=== PATIENT | male | born 1955 | race Caucasian/White ===

== ENCOUNTER 2017-11-27 09:34 | Outpatient (CLI) | payer BC ==
[2017-11-27 10:17] LABS: Anion Gap 12 mmol/L (10-20); BUN (Urea Nitrogen) 25 mg/dL (8.4-25.7); Bilirubin Negative (Negative); Blood, Urine Negative (Negative); Calc. Creatinine Clearance 0 mL/min (70-130); Calcium 9.7 mg/dL (7.8-10.44); Carbon Dioxide 26 mmol/L (23-31); Chloride 104 mmol/L (98-107); Clarity CLEAR (Clear); Estimated GFR-MDRD 90; Glucose 115 mg/dL (80-115); Glucose, Urine (Dipstick) Negative (Negative); Leukocyte Negative (Negative); Nitrite Negative (Negative); Potassium 4.1 mmol/L (3.5-5.1); Protein, Urine (Dipstick) Negative (Neg-Trace); Sodium 138 mmol/L (136-145); Specific Gravity, Urine 1.034 (1.002-1.036); Urobilinogen 0.2 mg/dL (0.2-1.0); pH, Urine 5.5 (5.0-9.0)
[2017-11-27 10:22] LABS: Bacteria/HPF None Seen HPF (None Seen); Hyaline Casts/LPF 0-3 HYALINE CAST LPF (0-3 Hyaline); Pathc Cast-AUWi Flag 0.72 (0-2.49); RBC/HPF 0-3 HPF (0-3); Squamous Epithelial None Seen HPF (0-3); WBC/HPF 0-3 HPF (0-3)
--- NOTE | 2017-11-27 12:13 | RAD ---
SINGLE VIEW ABDOMEN: Date: 11/27/17 COMPARISON: 05/02/16. HISTORY: Calculus of kidney. FINDINGS: Anterior views of the abdomen show a nonspecific, nonobstructed bowel gas pattern. There are calcific ations seen projecting over the left renal shadow measuring up to 4.0 mm in size. No calcifications a re seen projecting over the right renal shadow. No calcifications are seen along the course of the ur eters. IMPRESSION: Left nephrolithiasis. POS: NAOMIE
== END 2017-11-27 09:35 | disposition home or self-care (01) ==
LOC: RAD 09:34
PROVIDERS: ATTEND Urology
DX: Z12.5 Encounter for screening for malignant neoplasm of prostate (principal); N20.0 Calculus of kidney; N40.1 Benign prostatic hyperplasia with lower urinary tract symptoms
CPT/HCPCS: 36415; 74018; 80048; 81001; 87086; G0103

== ENCOUNTER 2019-01-06 08:34 | Observation (INO) | payer BC ==
[2019-01-06 09:21] LABS: #Lymphocytes 0.7 thou/uL (1.20-3.40); #Monocytes 0.7 thou/uL (0.11-0.59); #Neutrophils 8.8 thou/uL (1.40-6.50); %Basophils 0.1 % (0.0-1.0); %Eosinophils 0.5 % (0.0-10.0); %Lymphocytes 7.2 % (21.0-51.0); %Monocytes 7.1 % (0.0-10.0); %Neutrophils 85.2 % (42.0-75.0); Hemoglobin 15.8 g/dL (14.0-18.0); Mean Corpuscular HGB CONC 33.2 g/dL (32.0-36.0); Mean Corpuscular Hemoglobin 29.8 pg (27.0-31.0); Mean Corpuscular Volume 89.9 fL (78.0-98.0); Mean Platelet Volume 9.7 fL (7.4-10.4); Platelet Count 178 thou/uL (130-400); RBC Distribution Width 11.8 % (11.5-14.5); Red Blood Cell (RBC) Count 5.28 mill/uL (4.70-6.10); White Blood Cell (WBC) Count 10.3 thou/uL (4.8-10.8)
[2019-01-06 09:43] LABS: ALT (SGPT) 32 U/L (8-55); AST (SGOT) 20 U/L (5-34); Albumin 4.4 g/dL (3.4-4.8); Alkaline Phosphatase 92 U/L (40-150); Anion Gap 16 mmol/L (10-20); BUN (Urea Nitrogen) 16 mg/dL (8.4-25.7); Bilirubin, Total 0.7 mg/dL (0.2-1.2); Calc. Creatinine Clearance 0 mL/min (70-130); Carbon Dioxide 21 mmol/L (23-31); Chloride 104 mmol/L (98-107); Estimated GFR-MDRD 80; Glucose 142 mg/dL (80-115); Potassium 3.6 mmol/L (3.5-5.1); Protein, Total 7.4 g/dL (5.8-8.1); Sodium 137 mmol/L (136-145)
--- NOTE | 2019-01-06 10:46 | RAD ---
PORTABLE CHEST: Date: 01/06/19 HISTORY: Dyspnea. FINDINGS: Heart size is enlarged. There are some chronic-appearing lung changes without focal infiltrates or si gns of failure. IMPRESSION: Cardiomegaly with some chronic-appearing lung change. POS: TPC
[2019-01-06] MEDS ORDERED: ISOVUE-370 76%-LOCM 1 ML ONE (10:49)
[2019-01-06 11:08] LABS: CK (CPK) 88 U/L (30-200); Lipase 13 U/L (8-78)
--- NOTE | 2019-01-06 12:14 | CT ---
EXAM: CT angiogram of the chest including 3-D rendering: HISTORY: Generalized pressure in head, high blood pressure, shortness of breath, worsening COMPARISON: None FINDINGS: There is adequate opacification of the pulmonary arteries. No evidence for aortic aneurysm or dissection. No convincing CT evidence for acute pulmonary embolism. Very minute linear pleural-based parenchymal changes, probably chronic. Small hiatal hernia. No evidence for mediastinal mass or adenopathy. No evidence for pleural or pericardial effusion. The visualized upper abdomen is unremarkable. IMPRESSION: No convincing CT evidence for acute pulmonary embolism.
[2019-01-06] MEDS ORDERED: Aspirin Chewable 81 MG TAB ONE (12:30)
[2019-01-06] MEDS ORDERED: Acetaminophen 325 MG TAB PO PRN (12:30)
[2019-01-06] MEDS ORDERED: Guaifenesin DM 100-10/5 ML UDCUP PO PRN (12:30)
[2019-01-06 13:29] LABS: Troponin I Less than 0.010 ng/mL (< 0.028)
[2019-01-06 14:50] LABS: Bilirubin Negative (Negative); Blood, Urine Negative (Negative); Glucose, Urine (Dipstick) Negative (Negative); Leukocyte Negative (Negative); Nitrite Negative (Negative); Protein, Urine (Dipstick) Negative (Neg-Trace); Urobilinogen 0.2 mg/dL (0.2-1.0)
[2019-01-06 14:52] LABS: Clarity Clear (Clear)
--- NOTE | 2019-01-06 15:06 | CT ---
ABDOMEN AND PELVIC CT SCAN WITHOUT IV CONTRAST: Date: 01/06/19 HISTORY: Obstructive uropathy, fever, history of prior stones. COMPARISON: 11/13/16. FINDINGS: The patient had had contrast for CT angiogram of chest at 1152 hours on 01/06/19, so there is dense c ontrast media within both right and left upper renal collecting systems, ureters, and bladder. This w ill certainly obscure any renal calculi or nonobstructing calculi. The lung bases are clear. The liver, gallbladder, pancreas, spleen, and adrenal glands are unremarkab le. No evidence for acute obstruction. Approximately 3.0 cm diameter right periumbilical fat-conta ining hernia. There are some borderline size small bowel loops with fluid and air, nonspecific, the p ossibility of nonspecific ileus or enteritis is a consideration. There are some air and fluid levels, particularly in the right colon and transverse colon. There is evidence for a fat-containing right i nguinal hernia, which appears to contain a trace amount of fluid. No evidence for overt bowel obstruc tion, abscess, adenopathy, or abnormal fluid collection. Probable tiny hiatal hernia. IMPRESSION: Dense contrast media within the renal collecting systems, ureters, and bladder. This will certainly o bscure any nonobstructing renal calculi or ureteral or bladder calculi. No evidence for acute obst ruction. Probable tiny hiatal hernia. Right periumbilical and right groin fat-containing hernias. Tr marcel fluid in the right inguinal fat-containing hernia. Borderline size small bowel loops in the lower abdomen, nonspecific, raising the possibility of nonspecific enteritis or ileus. CODE T. POS: NAOMIE
--- NOTE | 2019-01-06 16:37 | HP ---
The patient will be seeing Dr. Magno Samuels next month for his initial appointment. REASON FOR ADMISSION: Possible gastroenteritis, sepsis, uncontrolled hypertension, chest pain. HISTORY OF PRESENTING ILLNESS: The patient gives history of having shortness of breath on exertion from last two months, which has been progressively getting worse. Also, his blood pressure has been labile from last 2 to 3 days now. He developed chest discomfort early this morning. He was feeling weak and not himself. Mr. Barr states that he had diarrhea nearly 5 to 6 times yesterday, which was watery, the last episode was early this morning and none after that. He has cough with expectoration of clear sputum. This is something chronic that he has only in the mornings when he clears up. He had a temperature of 100 degrees at home yesterday. He also developed chills last night. No prior cardiac workup. No complaints of urinary frequency or urgency. No abdominal pain as such. PAST MEDICAL AND SURGICAL HISTORY: History of nephrolithiasis with two prior lithotripsies done in 2012 and [address] Nath, chronic umbilical hernia, benign prostatic hypertrophy, melanoma removed from his left shoulder, has two herniated disks in the lower lumbar spine, prior arthroscopic left knee ligament/cartilage repair. CURRENT MEDICATIONS: 1. Takes Flomax 0.4 mg p.o. daily. 2. Multivitamin one tablet daily. ALLERGIES: NO KNOWN DRUG ALLERGIES. PERSONAL HISTORY: Quit drinking alcohol when he was 46 years of age, prior to which he was drinking 12 packs on the weekend and a mixed drink during week days. Does not abuse drugs or smoke. FAMILY HISTORY: Both parents lived up to 91 years. Mother had hypertension and diabetes. Father had diabetes. His sister has history of ovarian cancer. Another sister has history of lymphoma. CODE STATUS: Full. 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 REVIEW OF SYSTEMS: CONSTITUTIONAL: Negative for weight loss or gain, ability to conduct usual activities. SKIN: Negative for rash, itching. EYES: Negative for double vision, pain. ENT/MOUTH: Negative for nose bleeding, neck stiffness, pain, tenderness. CARDIOVASCULAR: Negative for palpitations, dyspnea on exertion, orthopnea. RESPIRATORY: Negative for shortness of breath, wheezing, cough, hemoptysis, fever or night sweats. GASTROINTESTINAL: Negative for poor appetite, abdominal pain, heartburn, nausea , vomiting, constipation, or diarrhea. GENITOURINARY: Negative for urgency, frequency, dysuria, nocturia. MUSCULOSKELETAL: Negative for pain, swelling. NEUROLOGIC/PSYCHIATRIC: Negative for anxiety, depression. ALLERGY/IMMUNOLOGIC: Negative for skin rash, bleeding tendency. PHYSICAL EXAMINATION: GENERAL: The patient is a 63-year-old male, who is currently not in any acute distress. VITAL SIGNS: Blood pressure 136/74, pulse 104 per minute, respiratory rate 16 per minute, temperature 100.4 degrees Fahrenheit, and saturating 97% on room air. NECK: Supple. No elevated JVD. HEENT: Eyes; extraocular muscles intact. Pupils reacting to light. Oral cavity, mucous membranes are dry. No exudates or congestion. CARDIOVASCULAR: S1 and S2 heard. Regular rhythm. RESPIRATORY: Air entry 1+ bilateral. Scattered rhonchi plus. No rales. ABDOMEN: Soft. Bowel sounds heard. Has umbilical hernia, which is reducible. No rigidity or guarding. EXTREMITIES: No peripheral edema or calf tenderness. VASCULAR: Peripheral pulses 1+ bilateral. No ischemic ulcerations or gangrene. CENTRAL NERVOUS SYSTEM: No gross focal deficits noted. The patient is alert, awake, oriented well. PSYCHIATRIC: The patient's mood is euthymic. No hallucinations or delusions. LABORATORY DATA: EKG done shows normal sinus rhythm at 82 beats per minute. There is incomplete RBBB seen. There is poor R-wave progression. There is questionable Q-waves in inferior wall leads II, III, aVF. White count of 10, H and H 15 and 47, platelet count 178 with 85% neutrophils. D-dimer is 1.0, BUN 16, creatinine 0.9 , serum bicarb 21, serum glucose 142. Troponin x2 negative. BNP 34. Liver enzymes are within normal limits. Albumin is 4.4. Lipase is 13. UA does not show any evidence of infection. Lactic acid is 1.6. CT angio chest done shows no evidence of PE. No mediastinal mass or adenopathy. No pleural effusion or pericardial effusion. No dissection or aneurysm seen. Small hiatal hernia. CT stone protocol done shows no obvious obstructing calculi seen. There is suspicion for nonspecific enteritis or ileus. CLINICAL IMPRESSION AND PLAN: The patient will be under observation on telemetry for possible sepsis, likely gastroenteritis versus food poisoning, which is resolving with no further episodes of diarrhea from morning, chest pain, progressive shortness of breath on exertion from last 2 months for further workup. We will obtain echo with 2D Doppler for LV function, nuclear stress test in view of EKG changes and chest discomfort that he had earlier this morning. We will also obtain stool studies, urine and blood cultures. We will hold off on antibiotics for now. I have explained to the patient that if his fever comes back, he will be switched over to inpatient. The patient had expressed that he did not want to stay in the hospital and I have explained to him the findings and the fever he has plus EKG changes and progressive shortness of breath that needs workup. We will place him on full-dose aspirin and Coreg 3.125 mg twice daily for now. We will also continue his Flomax. Further workup will be based on his progress during his stay here. We will continue to closely monitor him on telemetry. Job ID: [id number] MTDD
[2019-01-06 16:38] VITALS: BMI 37.8
[2019-01-06] MEDS: Carvedilol 3.125 MG TAB PO SCH (17:47)
[2019-01-06 19:12] LABS: Hemoglobin A1c 5.7 % (4.0-6.0)
[2019-01-06 19:29] LABS: Troponin I Less than 0.010 ng/mL (< 0.028)
[2019-01-06] MEDS: Famotidine 20 MG TAB PO SCH (20:32)
[2019-01-07 05:07] LABS: #Basophils 0.1 thou/uL (0.0-0.2); #Eosinphils 0.3 thou/uL (0.0-0.7); #Lymphocytes 1.5 thou/uL (1.20-3.40); #Monocytes 0.7 thou/uL (0.11-0.59); #Neutrophils 3.2 thou/uL (1.40-6.50); %Eosinophils 4.9 % (0.0-10.0); %Lymphocytes 26.6 % (21.0-51.0); %Monocytes 11.9 % (0.0-10.0); %Neutrophils 55.7 % (42.0-75.0); Hemoglobin 14.5 g/dL (14.0-18.0); Mean Corpuscular HGB CONC 33.8 g/dL (32.0-36.0); Mean Corpuscular Hemoglobin 30.7 pg (27.0-31.0); Mean Corpuscular Volume 90.7 fL (78.0-98.0); Mean Platelet Volume 9.7 fL (7.4-10.4); Platelet Count 176 thou/uL (130-400); RBC Distribution Width 11.9 % (11.5-14.5); Red Blood Cell (RBC) Count 4.74 mill/uL (4.70-6.10); White Blood Cell (WBC) Count 5.8 thou/uL (4.8-10.8)
[2019-01-07 05:38] LABS: Anion Gap 13 mmol/L (10-20); BUN (Urea Nitrogen) 9 mg/dL (8.4-25.7); Calc. Creatinine Clearance 175 mL/min (70-130); Carbon Dioxide 23 mmol/L (23-31); Cardiac Risk 3.2 (Less than 4.5); Chloride 106 mmol/L (98-107); Cholesterol 145 mg/dl (< 200 Desired); Estimated GFR-MDRD Greater than 90; Glucose 97 mg/dL (80-115); HDL Cholesterol 45 mg/dL (>60 Neg Risk); LDL Cholesterol, Calculated 80 mg/dL; Potassium 3.9 mmol/L (3.5-5.1); Sodium 138 mmol/L (136-145); Triglycerides 99 mg/dL (Less than 150)
[2019-01-07] MEDS: Carvedilol 3.125 MG TAB PO SCH ×2 (08:34→12:52)
[2019-01-07] MEDS ORDERED: Tamsulosin HCl 0.4 MG CAP PO SCH (09:00)
[2019-01-07] MEDS ORDERED: Enoxaparin Sodium 40 MG/0.4 ML SYRINGE SC SCH (09:00)
[2019-01-07] MEDS ORDERED: Aspirin 325 mg Enteric Coated Tablet PO SCH (09:00)
--- NOTE | 2019-01-07 11:47 | NM ---
Radionucleotide stress and rest myocardial perfusion scan with CT attenuation correction and SPECT im aging Left ventricular wall motion evaluation and ejection fraction HISTORY: Chest pain. FINDINGS: Adenosine protocol. Heterogeneous uptake throughout the left ventricular myocardium. No foc al perfusion defect or reversibility. GS analysis of gated SPECT images shows mild global hypokinesis. No focal wall motion abnormalities. Ejection fraction calculated at 54%. IMPRESSION: Normal myocardial perfusion scan. Normal LVEF.
[2019-01-07] MEDS: Famotidine 20 MG TAB PO SCH (12:52)
--- NOTE | 2019-01-07 12:56 | EKG ---
Test Reason : Blood Pressure : / mmHG Vent. Rate : 082 BPM Atrial Rate : 082 BPM P-R Int : 160 ms QRS Dur : 104 ms QT Int : 376 ms P-R-T Axes : 028 -40 021 degrees QTc Int : 439 ms Normal sinus rhythm Possible Left atrial enlargement Left axis deviation Incomplete right bundle branch block Left ventricular hypertrophy Abnormal ECG Confirmed by NELA BERNSTEIN, RAKAN ([id number]), acquisition editor CYNDIE COLÓN ([id number]) on 01/07/2019 12:56:18 PM Referred By: Confirmed By:RAKAN RONDON MD
[2019-01-07 13:01] VITALS: TEMP 98.3
[2019-01-07 15:29] VITALS: BP 134/82
--- NOTE | 2019-01-07 16:49 | CON ---
DATE OF CONSULTATION: 01/07/2019 REASON FOR CONSULTATION: Abnormal echo. HISTORY OF PRESENT ILLNESS: Mr. Barr is a pleasant 63-year-old white gentleman, who comes into the hospital for shortness of breath. He states for the last 2 months he has been noticing slightly worsening shortness of breath than normal. His blood pressure has been in the 170s. He decided to come in yesterday as soon as he developed mild chest discomfort, felt weak and had diarrhea all day long. He had a cough as well with clear sputum and every time he coughed, the pain was worse. His temperature was about 101.5 and felt chills. PAST MEDICAL HISTORY: 1. Nephrolithiasis in the past. 2. Chronic umbilical hernia. 3. BPH. 4. Melanoma removed. 5. Two herniated discs in the lumbar spine. 6. Arthroscopic left knee ligament cartilage repair. OUTPATIENT MEDICATIONS: 1. Flomax. 2. Multivitamin daily. ALLERGIES: NO KNOWN DRUG ALLERGIES. SOCIAL HISTORY: No alcohol since age 46. Prior to that very heavy alcohol use. No tobacco or drugs. FAMILY HISTORY: No early coronary artery disease. REVIEW OF SYSTEMS: A 12-point review of systems was done and was all negative unless stated in the history of present illness. PHYSICAL EXAMINATION: VITAL SIGNS: Temperature 98.3, pulse 73, respiratory rate 27, 95% on room air, and blood pressure 176/83. GENERAL: Awake, alert, oriented x3. No distress. HEENT: Normocephalic, atraumatic. NECK: Supple. LUNGS: Clear. CARDIOVASCULAR: S1 and S2. No S3 or S4. No murmurs. ABDOMEN: Soft. Positive bowel sounds. EXTREMITIES: No edema. SKIN: Warm and dry. LABORATORY DATA: Laboratory work was reviewed. CBC is unremarkable. Chemistry was unremarkable. Troponin was negative x3. BNP was normal. Normal LFTs. Nuclear stress was reviewed. EF at 56% with no evidence of ischemia. Echocardiogram was reviewed by myself. EF is close to 50%. No major valvular abnormalities. ASSESSMENT/PLAN: 1. Chest pain. 2. Hypertension. 3. Shortness of breath. PLAN: 1. We will plan on controlling blood pressure better. 2. We will add lisinopril 2.5 mg a day to his regimen as well as carvedilol which is already on board. 3. Echocardiogram reviewed by myself is closer to 50% than it is to 45%, may be normal in some views. Cannot see the LV that well. Currently, I will go with the EF on the nuclear stress test. If on followup, he continues to be short winded despite blood pressure control we will plan to further risk stratify with a heart catheterization at that point. Thank you for letting me to participate in the care of your patient. We will sign off. Please call with any questions. Followup in the office in one month. Job ID: [id number]
[2019-01-07] MEDS ORDERED: Lisinopril 5 MG TAB PO SCH (21:00)
--- NOTE | 2019-01-08 05:21 | DIS ---
DATE OF ADMISSION: 01/06/2019 DATE OF DISCHARGE: 01/07/2019 PRIMARY CARE PHYSICIAN: Magno Samuels, DO The patient however is yet to be seen by this physician for initial doctor visit. DISCHARGE DIAGNOSES: 1. Uncontrolled hypertension. 2. Acute systolic dysfunction with EF of 45% to 50%. 3. Obesity. 4. Atypical chest pain. 5. Acute diarrheal illness. 6. Nephrolithiasis. 7. Presumed resolving acute enteritis. CONSULTS: Cardiology. HOSPITAL COURSE: The patient is a 63-year-old obese male with known history of nephrolithiasis as well as history of exertion on dyspnea in the last two months, who was admitted due to acute onset of chest pain. The patient also reported acute diarrheal illness a day prior to presentation, which has subsided. The patient also reported subjective fever, though he was afebrile on evaluation here in the hospital. He was found to have elevated hypertension. Acute myocardial infarction was ruled out with serial troponin and patient subsequently had further cardiac stratification with echocardiogram and nuclear stress test. While nuclear stress test was negative, echocardiogram showed decreased systolic function with ejection fraction of 45% to 50%. Cardiology consult was obtained and treatment of hypertension with beta tiffani and lisinopril were recommended, as well as 1-month followup. The patient also was evaluated with CT angio of chest, which was negative for PE. Diarrheal illness subsided and the patient was feeling a lot better and he remained afebrile during this hospitalization and was subsequently discharged. He was advised to cut down salt in his diet, as well as lose weight. PHYSICAL EXAMINATION: VITAL SIGNS: BP 134/82, pulse 78, respiratory rate 20, SpO2 of 95% on room air, and temperature 98.3. GENERAL: Obese male, in no obvious distress. Afebrile. Anicteric. Acyanotic. HEENT: Normocephalic, atraumatic. Pupils are equal and reactive to light. CARDIOVASCULAR: Regular rhythm and rate with normal heart sounds one and two. RESPIRATORY: Good air entry bilaterally with no obvious crackle or rhonchi or use of accessory muscles. GI: Obese, soft, nontender, nondistended with normal bowel sounds. EXTREMITIES: Grossly normal looking atraumatic with no edema, erythema, or cyanosis. NEUROLOGIC: Conscious, alert, oriented x3 with appropriate mental status. Cranial nerves 2 through 12 are intact. DISCHARGE MEDICATIONS: 1. Flomax 0.4 mg p.o. daily. 2. Multivitamin with iron one tablet p.o. daily. 3. Glucosamine chondroitin two tablets PM. 4. Coreg 3.125 b.i.d. 5. Lisinopril 5 mg p.o. b.i.d. CONDITION AT DISCHARGE: Improved. FOLLOWUP: Follow up with PCP in 1 week. Followup with information assurance in 1 month. Job ID: [id number]
[2019-01-08] MEDS ORDERED: Lisinopril 2.5 MG TAB PO SCH (09:00)
== END 2019-01-07 15:54 | disposition home or self-care (01) ==
LOC: ERS 08:34 → ERHOLD 12:20 → 2SW 15:28
PROVIDERS: ADMIT Internal Medicine; ATTEND Internal Medicine
DX: I11.0 Hypertensive heart disease with heart failure (principal); I50.21 Acute systolic (congestive) heart failure; R07.89 Other chest pain; E66.9 Obesity, unspecified; N20.0 Calculus of kidney; R19.7 Diarrhea, unspecified; I45.10 Unspecified right bundle-branch block; N40.0 Benign prostatic hyperplasia without lower urinary tract symptoms; Z87.891 Personal history of nicotine dependence; Z98.890 Other specified postprocedural states; Z68.37 Body mass index [BMI] 37.0-37.9, adult; Z79.899 Other long term (current) drug therapy
CPT/HCPCS: 36415; 71045; 71275; 74176; 78452; 80048; 80053; 80061; 81003; 82550; 83036; 83605; 83690; 83880; 84484; 85025; 85379; 87040; 87045; 87046; 87086; 87324; 87449; 87899; 93005; 93017; 93306; 94760; 96361; 96365; 96366; 96372; A9500; G0378; J0153; J1650; J1956; Q9966

== ENCOUNTER 2019-02-07 09:29 | Outpatient (CLI) | payer BC ==
--- NOTE | 2019-02-07 09:53 | RAD ---
EXAM: Single view of the abdomen HISTORY: Calculus of the kidney COMPARISON: 11/27/2017 FINDINGS: Single view of the abdomen shows a nonspecific, nonobstructive bowel gas pattern. There are stable calcifications over the lower pole the left kidney measuring up to 4 mm in size. The bones are unremarkable. IMPRESSION: Left nephrolithiasis
== END 2019-02-07 09:30 | disposition home or self-care (01) ==
LOC: RAD 09:29
PROVIDERS: ATTEND Urology
DX: Z12.5 Encounter for screening for malignant neoplasm of prostate (principal); N20.0 Calculus of kidney
CPT/HCPCS: 36415; 74018; G0103

== ENCOUNTER 2021-08-09 13:36 | Outpatient (CLI) | payer MEDICARE, OTHER | END 2021-08-09 13:37 | disposition home or self-care (01) | LOC: RAD 13:36 | PROVIDERS: ATTEND Urology | DX: Z12.5 Encounter for screening for malignant neoplasm of prostate (principal); N20.0 Calculus of kidney; N40.1 Benign prostatic hyperplasia with lower urinary tract symptoms; R97.20 Elevated prostate specific antigen [PSA] | CPT/HCPCS: 74018 ==

== ENCOUNTER 2022-10-15 14:13 | Outpatient (CLI) | payer MEDICARE, OTHER | END 2022-10-15 14:14 | disposition home or self-care (01) | LOC: BICRAD 14:13 | PROVIDERS: ATTEND Urology | DX: N40.1 Benign prostatic hyperplasia with lower urinary tract symptoms (principal); N28.89 Other specified disorders of kidney and ureter | CPT/HCPCS: 36415; 74018; 81001; 84153 ==